=== PATIENT | male | born 1990 | race Caucasian/White ===

== ENCOUNTER 2018-07-28 23:53 | Emergency (ER) | payer OTHER ==
[~2018-07-28] VITALS: Ht 182.9 cm; Wt 81.2 kg
[2018-07-29 00:05] VITALS: Ht 182.9 cm; Wt 81.2 kg
[2018-07-29 02:11] VITALS: BP 124/69
== END 2018-07-29 02:11 | disposition home or self-care (01) ==
LOC: ED 23:53
DX: R07.89 Other chest pain (principal); F43.9 Reaction to severe stress, unspecified
CPT/HCPCS: Q0092